=== PATIENT | female | born 2000 | race Caucasian/White ===

== ENCOUNTER 2021-08-13 12:54 | Emergency (ER) | payer SELFPAY ==
--- NOTE | 2021-08-13 12:56 | ED.ANIMALBIT ---
HPI - Animal Bite General Chief Complaint: Animal Bite Stated Complaint: cat bite Time Seen by Provider: 08/13/21 12:56 Source: patient and RN notes reviewed History of Present Illness HPI narrative: Patient is a 20-year-old female who presents the urgent care with complaints of swelling, pain, numbness and redness to the left middle digit after getting bit by her cat yesterday. Patient states the cat is up-to-date on vaccinations. Denies of any fever, chills, nausea or vomiting. Patient has not taken anything [id number] for her symptoms. No other acute complaints. No acute distress noted. Patient aware of the plan of care. Some parts of this dictation were generated by voice recognition software and may contain typographical and/or grammatical inaccuracies. Related Data Home Medications Medication Instructions Recorded Confirmed norethindrone acetate 1 mg-ethinyl 1 tablet PO DAILY 08/13/21 08/13/21 estradiol 20 mcg tablet Allergies Allergy/AdvReac Type Severity Reaction Status Date / Time No Known Allergies Allergy Verified 08/13/21 13:13 Review of Systems Review of Systems: CONSTITUTIONAL: Denies fever, chills, or sweats. EYES: Denies visual changes, redness, or discharge. ENT: Denies rhinorrhea, congestion, sore throat, or otalgia. CARDIOVASCULAR: Denies chest pain, palpitations, or edema. RESPIRATORY: Denies cough or dyspnea. GASTROINTESTINAL: Denies abdominal pain, nausea, vomiting, or diarrhea. GENITOURINARY: Denies dysuria or hematuria. SKIN: Reports of a cat bite to the left middle digit MUSCULOSKELETAL: Reports of swelling/pain/numbness to the left middle digit NEUROLOGIC: Denies headache, numbness, or weakness. All other systems reviewed are negative, except as documented in HPI. PMFSH Comments At the time of my signature, I reviewed and agree with the nursing past medical, surgical, social, and family history. There is no relevant family history pertinent to the patient complaint. Exam Narrative: GENERAL: This is a well-nourished, well-developed patient, in no apparent distress. HEAD: normocephalic, atraumatic. EYES: PERRL. Sclera clear/white. Vision is grossly intact. EARS: External ears normal NOSE: External nose normal with no obvious nasal discharge, nares without redness, no rhinorrhea. THROAT: Mucous membranes moist NECK: Neck supple CARDIOVASCULAR: Regular rate and rhythm without murmurs, gallops, or rubs. RESPIRATORY: Clear to auscultation. Breath sounds equal bilaterally. No wheezes, rales, or rhonchi. SKIN: 2 scabbed puncture wounds noted to the left middle digit. Warm, intact with no suspicious lesions or rash, good texture and turgor. NEURO: awake, alert, and oriented to person, place and time. There were no obvious focal neurologic abnormalities. EXTREMITIES: Mild to moderate edema/erythema to the left third digit with mild tenderness. Positive strong left radial pulse with capillary refill less than 2 seconds. Course Course Level of Care: Express Care Visit Vital Signs Vital signs: Vital Signs Temperature 98.1 F 08/13/21 13:09 Pulse Rate 75 08/13/21 13:09 Respiratory Rate 14 08/13/21 13:09 Blood Pressure 118/59 L 08/13/21 13:09 Pulse Oximetry 99 08/13/21 13:09 Oxygen Delivery Room Air 08/13/21 13:09 Temperature 98.1 F 08/13/21 13:09 Pulse Rate 75 08/13/21 13:09 Respiratory Rate 14 08/13/21 13:09 Blood Pressure 118/59 L 08/13/21 13:09 Pulse Oximetry 99 08/13/21 13:09 Oxygen Delivery Room Air 08/13/21 13:09 Reviewed MDM - Animal Bite MDM Narrative Medical decision making narrative: Advised patient to use ice as needed for discomfort and swelling. Use Tylenol/ibuprofen as needed for pain. Complete the oral antibiotic regimen as prescribed. Be sure to eat and drink with the medication. If you develop any increase in symptoms associated with severe pain, fever, nausea, vomiting or drainage from the wound?go to the emergency
[2021-08-13 13:09] VITALS: BP 118/59; PULSE 75; RESP 14; TEMP 36.7; O2SAT 99
== END 2021-08-13 13:20 | disposition home or self-care (01) ==
PROVIDERS: Emergency Provider Nurse Practitioner Family
DX: S61.233A Puncture wound without foreign body of left middle finger without damage to nail, initial encounter (principal); W55.01XA Bitten by cat, initial encounter
CPT/HCPCS: 99213; G0463

== ENCOUNTER 2024-03-30 15:01 | Emergency (ER) | payer BC, SELFPAY ==
[2024-03-30 15:08] VITALS: BP 110/83; PULSE 86; RESP 16; TEMP 36.7; O2SAT 100
--- NOTE | 2024-03-30 15:15 | ED.FEMALEGU ---
HPI - Female Genitourinary General Chief complaint: Urogenital-Female Stated complaint: poss kidney infection Time Seen by Provider: 03/30/24 15:17 Source: patient, RN notes reviewed and old records reviewed Mode of arrival: ambulatory Limitations: no limitations History of Present Illness HPI Narrative: 23 year old female who presents to [facility] care with complaints of urinary burning urgency and frequency for the past 3-4 days with stated complaints of left flank pain starting yesterday. Patient reports that she has been taking Tylenol and AZO for her symptoms with no AZO taken today.Patient voices no concern for any STD exposure, denies any vaginal discharge or itching. Patient reports no fevers, no nausea or vomiting. MD elicited complaint: UTI Onset (ago): day(s) (3-4) Location of symptoms: urethra and flank (left) Severity scale (1-10): 3 Quality of pain: aching Vaginal discharge: none Vaginal bleeding: none Treatment prior to arrival: OTC urinary analgesics and acetaminophen Related Data Allergies Allergy/AdvReac Type Severity Reaction Status Date / Time No Known Allergies Allergy Verified 03/30/24 15:20 Review of Systems Review of Systems: CONSTITUTIONAL: Denies fever, chills, or sweats. CARDIOVASCULAR: Denies chest pain, palpitations, or edema. RESPIRATORY: Denies cough or dyspnea. GASTROINTESTINAL: Denies abdominal pain, nausea, vomiting, or diarrhea. GENITOURINARY: Reports dysuria, frequency, urgency. reports left flank pain no visible hematuria. SKIN: Denies rash or itching. MUSCULOSKELETAL: Denies back pain or myalgia. reports left CVA tenderness NEUROLOGIC: Denies headache All systems reviewed & are unremarkable except as noted in HPI and below PMFSH Past Medical History Medical History (Updated 03/31/24 @ 12:38 by Imelda Howard NP) Urinary tract infection Anxiety Social History Social History (Updated 03/31/24 @ 12:33 by Imelda Howard NP) Smoking status: Never smoker Alcohol intake: current Alcohol use details: social Substance use: current Substance use type: marijuana Last use: social Gender identity (if verbalized by the patient): Female Comments At time of signature, agree with nursing past medical, surgical, social and family history. There is no relevant family history pertinent to the presenting complaint Exam Narrative: GENERAL: Well-appearing, well-nourished, and in no acute distress. HEAD: Normocephalic, atraumatic. NECK: Supple. no lymphadenopathy CHEST: Clear to auscultation. No respiratory distress.SAO2 100% on room air HEART: Regular rate and rhythm. No murmur heard. Normal peripheral pulses. ABDOMEN: Soft, nontender, nondistended, normal active bowel sounds. left CVA tenderness, urinary burning urgency and frequency EXTREMITIES: Normal range of motion. No edema. SKIN: Warm, dry, no rash. NEURO: No focal deficits. Alert and oriented x3. Course Course Emergency Course: Patient is aware of diagnosis, understands and agrees to treatment plan.? Anticipatory guidance given.? Patient agrees to follow-up as directed and is aware of reasons to seek care at the emergency department. Portions of this record may have been created with voice recognition software Level of Care: Express Care Visit Vital Signs Vital signs: Vital Signs Temperature 36.7 C 03/30/24 15:08 Pulse Rate 86 03/30/24 15:08 Respiratory Rate 16 03/30/24 15:08 Blood Pressure 110/83 03/30/24 15:08 Pulse Oximetry 100 03/30/24 15:08 Oxygen Delivery Room Air 03/30/24 15:08 Temperature 36.7 C 03/30/24 15:08 Pulse Rate 86 03/30/24 15:08 Respiratory Rate 16 03/30/24 15:08 Blood Pressure 110/83 03/30/24 15:08 Pulse Oximetry 100 03/30/24 15:08 Oxygen Delivery Room Air 03/30/24 15:08 MDM - Female Genitourinary MDM Narrative Medical decision making narrative: Exam findings and UA show no acute concerns or changes; patient is non-toxic appearing and is in no distress.? Patient is appropriate for outpatient treatment and follow-up. Differential Diagnosis Differential diagnosis: Likely urinary tract infection, cystitis and other (dysuria, left flank pain) Lab Data Attestation: I reviewed the patient's lab results. Lab results narrative: urine dip reviewed urine yellow and cloudy, positive nitrite, 1+ leukocytes, 2+ blood; previous AZO none in 24 hours Labs: Lab Results 03/30/24 Range/Units 15:18 POC Urine Color Yellow POC Urine Clarity Cloudy POC Urine pH 6.5 POC Ur Specif [place] 1.020 POC Urine Protein Negative (Negative) POC Ur Glucose (UA) Negative (Negative) POC Urine Ketones Negative (Negative) POC Urine Blood 2+ (Negative) POC Urine Nitrite Positive (Negative) POC Urine Bilirubin Negative (Negative) POC Urine Urobilinogen 0.2 POC U Leukocyte Esteras 1+ (Negative) reviewed Critical Care Time Critical Care Time Critical Care Time: No Discharge Plan Discharge Clinical Impression: Urinary tract infection Qualifiers: Urinary tract infection type: site unspecified Hematuria presence: with hematuria Qualified Code(s): N39.0 - Urinary tract infection, site not specified; R31.9 - Hematuria, unspecified Patient Disposition: Home, Self-Care Condition: Stable Instructions: Antibiotic Form, Urinary Tract Infection in Women (ED) Additional Instructions: Increase fluids especially cranberry juice and water Avoid caffeine and carbonated beverages Antibiotic as directed Tylenol/ibuprofen for pain or fever Follow-up with her primary care provider if further problems or concerns Recheck if you have fever over 101, nausea and vomiting. Amoxicillin with clavulanate take all doses as prescribed. If your symptoms persist, change or worsen significantly before you can contact your personal physician then please, without delay, go to the emergency department for further evaluation. Follow-up with PCP in 7-10 days or sooner if needed Patient Language: Khmer Prescriptions: New amoxicillin-pot clavulanate 875-125 mg tablet 1 tablet PO Q12H Qty: 20 0RF Rx Instructions: take all of prescription and take with food, Recommend probiotic or eating Activa yogurt while on this medication Follow-up/Referrals: PHYSICIAN,HIGH SCHOOL SOCIAL SCIENCE TEACHER [Primary Care Provider] - Time of Disposition: 15:46 Quality [place] Coma Scale Eyes: Open Verbal: Oriented and Alert Motor: Follows Commands [place] Coma Total Score: 15
[2024-03-30 15:27] LABS: EDUAAPPEAR Cloudy; EDUABILI Negative (Negative); EDUABLOOD 2+ (Negative); EDUACOLOR1 Yellow; EDUAGLUCOSE Negative (Negative); EDUAKETONE Negative (Negative); EDUALEUKO 1+ (Negative); EDUANITRATE Positive (Negative); EDUAPH 6.5; EDUAPROTEIN Negative (Negative); EDUAUROBILI 0.2
--- OUTSIDE RECORDS SUMMARY | 2024-04-01 19:28 | XMS_ITS | Clinical Summary ---
Author Organization [facility] Address [address] [place] [address] Phone Care Team Providers Care Yarn Spinner Name Role Phone Provider, None Primary Care Provider Unavailabl e Allergies No known active allergies Medications ondansetron (ZOFRAN-ODT) 4 MG TABLET DISPERSIBLE Take 1 Tablet by mouth every 8 hours as needed for Nausea - 1st line. 20 Tablet 3 Active albuterol 108 (90 Base) MCG/ACT Aerosol Solution take 2 Puffs by inhalation every 6 hours as needed for Cough. 18 g 3 Active Social History Tobacco Use Types Packs/Day Years Used Date Smoking Tobacco: Every Day Cigarettes Smokeless Tobacco: Current Tobacco Cessation:Ready to Q uit: Not Asked; Counseling Given: Not Answered Comments No Sex and Gender Information Value Date Recorded Sex Assigned at Not on file Legal Sex Female 12:04 AM CDT Gender Identity Not on file Sexual Orientation Not on file Last Filed Vital Signs Vital Sign Reading Time Taken Comments Blood Pressure 145/78 11/13/2022 3:02 AM CDT Pulse 108 11/13/2022 12:16 AM CDT Temperature 36.9 ??C (98.5 ??F) 11/13/2022 12:16 AM C DT Respiratory Rate 20 11/13/2022 12:16 AM CDT Oxygen Saturation 98% 11/13/2022 12:16 AM CDT Inhaled Oxygen Concentration - - Weight 49.9 kg (110 lb) 11/13/2022 12:16 AM CDT Height 152.4 cm (5') 11/13/2022 12:16 AM CDT Body Mass Index 21.48 11/13/2022 12:16 AM CDT Plan of Treatment Not on file Insurance MEDICAID [place] Care Teams Yarn Spinner Relationship Specialty Start Date End Date Provider, None [place] PCP - General 11/13/22
--- OUTSIDE RECORDS SUMMARY | 2024-04-01 19:28 | XMS_ITS | Clinical Summary ---
Author Organization [address] Address [address] [place] [id number] Care Team Providers Care Logging Superintendent Name Role Phone No, Physician Primary Care Provider [phone] Allergies No known active allergies Medications Sprintec, 28, 0.25-35 mg-mcg per tablet Take 1 tablet by mouth daily 10/13/2019 Active Active Problems Problem Noted Date Diagnosed Date Closed fracture of shaft of bone of forearm 06/08 Closed fracture of shaft of radius 05/29/2011 Closed fracture of radius 05/23/2011 Immunizations Name Administration Dates Next Due DTaP 10/31/2006,04/21/2006,12/15/2002 ,2001 HPV9 11/23/2018 Hep A, Pediatric 11/23/2018,07/01/2006 Hep B / HiB 04/21/2006,12/15/2002,2001 IPV 04/21/2006,12/15/2002,2001 MMR 12/15/2002 MMRV 04/21/2006 Meningococcal B, OMV (Bexsero) 11/23/2018 Meningococcal MCV4P (Menactra) 11/23/2018 Pneumococcal Conjugate 7-Valent 12/15/2002,10/27 Tdap 10/05/2012 Varicella 12/15/2002 Family History Relation Name Status Comments Father Alive Mother Alive Social History Tobacco Use Types Packs/Day Years Used Date Smoking Tobacco: Never Smokeless Tobacco: Never Comments Unknown Sex and Gender Information Value Date Recorded Sex Assigned at Not on file 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 Gender Identity Not on file Sexual Orientation Not on file Obstetrics History Last Filed Vital Signs Vital Sign Reading Time Taken Comments Blood Pressure 112/72 10/20/2019 12:59 PM CDT Pulse 88 10/20/2019 12:59 PM CDT Temperature 36.9 ??C (98.5 ??F) 10/20/2019 12:59 PM C DT Respiratory Rate 18 10/20/2019 12:59 PM CDT Oxygen Saturation 98% 10/20/2019 12:59 PM CDT Inhaled Oxygen Concentration - - Weight 53.3 kg (117 lb 8 oz) 10/20/2019 12:59 PM CDT Height 152.4 cm (5') 10/20/2019 12:59 PM CDT Body Mass Index 22.95 10/20/2019 12:59 PM CDT Plan of Treatment Not on file Care Teams Logging Superintendent Relationship Specialty Start Date End Date No, Physician PCP - General 10/20/19
--- OUTSIDE RECORDS SUMMARY | 2024-04-01 19:28 | XMS_ITS | Referral Summary ---
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
== END 2024-03-30 15:55 | disposition home or self-care (01) ==
PROVIDERS: Emergency Provider Registered Nurse
DX: N39.0 Urinary tract infection, site not specified (principal); R31.9 Hematuria, unspecified; F12.90 Cannabis use, unspecified, uncomplicated
CPT/HCPCS: 81003; 87086; 99213; G0463